=== PATIENT | male | born 1935 | race Caucasian/White ===

== ENCOUNTER 2019-12-04 09:51 | Emergency (ER) | payer MEDICARE, BC ==
[~2019-12-04] VITALS: Ht 177.8 cm; Wt 74.8 kg
[~2019-12-04 09:51] MED LIST: Colace100 MG PO; Norco 5-325 Ta1 EACH PO
[2019-12-04 12:27] LABS: BASOPHILS ABSOLUTE AUTO 0.02 K/mm3 (0.00-0.23); BASOPHILS PERCENT AUTO 0 % (0-2); EOSINOPHILS ABSOLUTE AUTO 0.02 K/mm3 (0.00-0.68); EOSINOPHILS PERCENT AUTO 0 % (0-6); Hematocrit 43.3 % (37.0-53.0); Hemoglobin 14.1 g/dL (13.5-17.5); IMMATURE GRAN ABSOLUTE AUTO 0.04 K/mm3 (0.00-0.10); IMMATURE GRAN PERCENT AUTO 0 % (0-1); LYMPHOCYTES ABSOLUTE AUTO 0.76 K/mm3 (0.84-5.20); LYMPHOCYTES PERCENT AUTO 7 % (21-46); MONOCYTES ABSOLUTE AUTO 0.37 K/mm3 (0.16-1.47); MONOCYTES PERCENT AUTO 4 % (4-13); Mean Corpuscular HGB 27.9 pg (26.0-34.0); Mean Corpuscular HGB Conc 32.6 g/dL (31.5-36.5); Mean Corpuscular Volume 86 fL (80-100); Mean Platelet Volume 9.3 fL (9.1-12.4); NEUTROPHILS ABSOLUTE AUTO 9.09 K/mm3 (1.96-9.15); NEUTROPHILS PERCENT AUTO 88 % (41-73); Platelet Count 397 K/mm3 (150-400); RDW Coefficient Variation 12.5 % (11.7-14.2); Red Blood Cell Count 5.05 M/mm3 (4.30-5.90)
[2019-12-04 13:05] LABS: Alanine Aminotransfer (ALT/SGP 23 U/L (12-78); Albumin, Blood 3.8 g/dL (3.4-5.0); Albumin/Globulin Ratio 1.1 (0.8-1.8); Alk Phos 67 U/L (50-136); Anion Gap 10 mmol/L (6-16); Aspartate Aminotrans (AST/SGOT 15 U/L (12-37); Bilirubin, Total 0.3 mg/dL (0.1-1.0); Blood Urea Nitrogen 15 mg/dL (8-24); CO2, Blood 24 mmol/L (21-32); Calcium, Blood 9.2 mg/dL (8.5-10.1); Chloride, Blood 105 mmol/L (98-108); Creatinine, Blood 0.72 mg/dL (0.60-1.20); Globulin, Blood 3.6 g/dL (2.2-4.0); Glomerular Filtration Rate >60 (60-); Glucose, Blood 232 mg/dL (70-99); Potassium, Blood 4.1 mmol/L (3.5-5.5); Sodium, Blood 139 mmol/L (136-145); Total Protein, Blood 7.4 g/dL (6.4-8.2)
[2019-12-04] MEDS ORDERED: Norco 5-325 Ta1 EACH PO (14:24)
[2019-12-04] MEDS ORDERED: Mobic15 MG PO (14:24)
== END 2019-12-04 15:00 | disposition home or self-care (01) ==
LOC: ER 09:51
PROVIDERS: Physician Assistant
DX: G89.29 Other chronic pain (principal); M19.011 Primary osteoarthritis, right shoulder; S46.001D Unspecified injury of muscle(s) and tendon(s) of the rotator cuff of right shoulder, subsequent encounter; E11.42 Type 2 diabetes mellitus with diabetic polyneuropathy
CPT/HCPCS: 36415; 80053; 82947; 85025; 96374; 99283-25; J1885

== ENCOUNTER → 2020-07-09 | Outpatient (CLI) | payer MEDICARE, BC ==
[~2020-07-09] MED LIST changes: +Mobic15 MG PO
[2020-07-09 13:31] LABS: BASOPHILS ABSOLUTE AUTO 0.03 K/mm3 (0.00-0.23); BASOPHILS PERCENT AUTO 0 % (0-2); EOSINOPHILS ABSOLUTE AUTO 0.16 K/mm3 (0.00-0.68); EOSINOPHILS PERCENT AUTO 2 % (0-6); Hematocrit 41.7 % (37.0-53.0); IMMATURE GRAN ABSOLUTE AUTO 0.04 K/mm3 (0.00-0.10); IMMATURE GRAN PERCENT AUTO 0 % (0-1); LYMPHOCYTES PERCENT AUTO 12 % (21-46); MONOCYTES ABSOLUTE AUTO 0.54 K/mm3 (0.16-1.47); MONOCYTES PERCENT AUTO 6 % (4-13); Mean Corpuscular HGB 27.2 pg (26.0-34.0); Mean Corpuscular HGB Conc 31.2 g/dL (31.5-36.5); Mean Corpuscular Volume 87 fL (80-100); Mean Platelet Volume 9.5 fL (9.1-12.4); NEUTROPHILS ABSOLUTE AUTO 7.79 K/mm3 (1.96-9.15); NEUTROPHILS PERCENT AUTO 80 % (41-73); Platelet Count 333 K/mm3 (150-400); RDW Coefficient Variation 13.5 % (11.7-14.2); RDW Standard Deviation 43.5 fL (35.1-46.3); Red Blood Cell Count 4.78 M/mm3 (4.30-5.90); White Blood Cell Count 9.76 K/mm3 (4.00-11.30)
[2020-07-09 13:59] LABS: Alanine Aminotransfer (ALT/SGP 19 U/L (12-78); Albumin, Blood 3.7 g/dL (3.4-5.0); Albumin/Globulin Ratio 1.2 (0.8-1.8); Alk Phos 64 U/L (50-136); Anion Gap 3 mmol/L (6-16); Aspartate Aminotrans (AST/SGOT 18 U/L (12-37); Bilirubin, Total 0.7 mg/dL (0.1-1.0); Blood Urea Nitrogen 14 mg/dL (8-24); Bun/Creatinine Ratio 17.4 (12.0-20.0); CO2, Blood 30 mmol/L (21-32); Chloride, Blood 108 mmol/L (98-108); Creatinine, Blood 0.81 mg/dL (0.60-1.20); Globulin, Blood 3.2 g/dL (2.2-4.0); Glomerular Filtration Rate >60 (60-); Glucose, Blood 114 mg/dL (70-99); Potassium, Blood 4.4 mmol/L (3.5-5.5); Sodium, Blood 141 mmol/L (136-145); Total Protein, Blood 6.9 g/dL (6.4-8.2)
== END ==
LOC: LAB 13:21 → LAB SHORT 13:21
PROVIDERS: Nurse Practitioner Family
DX: R11.2 Nausea with vomiting, unspecified (principal)
CPT/HCPCS: 80053; 83690; 85025

== ENCOUNTER 2022-03-11 17:15 | Emergency (ER) | payer MEDICARE, BC ==
[~2022-03-11] VITALS: Ht 177.8 cm; Wt 77.1 kg
[2022-03-11 19:16] LABS: BASOPHILS ABSOLUTE AUTO 0.01 K/mm3 (0.00-0.23); BASOPHILS PERCENT AUTO 0 % (0-2); EOSINOPHILS PERCENT AUTO 0 % (0-6); Hematocrit 37.6 % (37.0-53.0); Hemoglobin 12.1 g/dL (13.5-17.5); IMMATURE GRAN ABSOLUTE AUTO 0.04 K/mm3 (0.00-0.10); IMMATURE GRAN PERCENT AUTO 0 % (0-1); LYMPHOCYTES PERCENT AUTO 5 % (21-46); MONOCYTES ABSOLUTE AUTO 1.13 K/mm3 (0.16-1.47); MONOCYTES PERCENT AUTO 11 % (4-13); Mean Corpuscular HGB 26.9 pg (26.0-34.0); Mean Corpuscular HGB Conc 32.2 g/dL (31.5-36.5); Mean Corpuscular Volume 84 fL (80-100); Mean Platelet Volume 10.1 fL (9.1-12.4); NEUTROPHILS PERCENT AUTO 83 % (41-73); Platelet Count 227 K/mm3 (150-400); RDW Coefficient Variation 13.2 % (11.7-14.2); RDW Standard Deviation 40.9 fL (35.1-46.3); Red Blood Cell Count 4.49 M/mm3 (4.30-5.90); White Blood Cell Count 10.08 K/mm3 (4.00-11.30)
[2022-03-11] MEDS ORDERED: LATANOPROST2.5 M3 BOTHEYES (19:33)
[2022-03-11] MEDS ORDERED: CEPH500 PO (19:33)
[2022-03-11] MEDS ORDERED: GABA100 PO (19:34)
[2022-03-11] MEDS ORDERED: OMEP20ER PO (19:34)
[2022-03-11] MEDS ORDERED: PREGABALIN75 MG PO (19:35)
[2022-03-11] MEDS ORDERED: Celexa20 MG PO (19:35)
[2022-03-11] MEDS ORDERED: LISI20 PO (19:35)
[2022-03-11 19:40] LABS: Albumin, Blood 3.9 g/dL (3.4-5.0); Albumin/Globulin Ratio 1.2 (0.8-1.8); Bun/Creatinine Ratio 29.4 (12.0-20.0); Calcium, Blood 8.9 mg/dL (8.5-10.1); Creatinine, Blood 1.09 mg/dL (0.60-1.20); Globulin, Blood 3.3 g/dL (2.2-4.0); Potassium, Blood 4.1 mmol/L (3.5-5.5); Total Protein, Blood 7.2 g/dL (6.4-8.2)
== END 2022-03-11 21:38 | disposition home or self-care (01) ==
LOC: ER 17:15
PROVIDERS: Physician Assistant
DX: B08.4 Enteroviral vesicular stomatitis with exanthem (principal); R29.6 Repeated falls; Z87.891 Personal history of nicotine dependence
CPT/HCPCS: 36415; 70450; 71045; 72125; 80053; 83735; 84484; 85025; 93005; 93010

== ENCOUNTER 2022-10-07 07:12 | Inpatient (IN) | payer MEDICARE, BC ==
[~2022-10-07] VITALS: Ht 177.8 cm; Wt 77.0 kg
[~2022-10-07 07:12] MED LIST changes: +CEPH500 PO; +Celexa20 MG PO; +GABA100 PO; +LATANOPROST2.5 M3 BOTHEYES; +LISI20 PO; +OMEP20ER PO; +PREGABALIN75 MG PO
[2022-10-07 07:46] LABS: BASOPHILS ABSOLUTE AUTO 0.02 K/mm3 (0.00-0.23); BASOPHILS PERCENT AUTO 0 % (0-2); EOSINOPHILS ABSOLUTE AUTO 0.01 K/mm3 (0.00-0.68); EOSINOPHILS PERCENT AUTO 0 % (0-6); Hematocrit 38.8 % (37.0-53.0); Hemoglobin 12.2 g/dL (13.5-17.5); IMMATURE GRAN ABSOLUTE AUTO 0.05 K/mm3 (0.00-0.10); IMMATURE GRAN PERCENT AUTO 1 % (0-1); LYMPHOCYTES ABSOLUTE AUTO 0.58 K/mm3 (0.84-5.20); LYMPHOCYTES PERCENT AUTO 6 % (21-46); MONOCYTES PERCENT AUTO 7 % (4-13); Mean Corpuscular HGB 26.6 pg (26.0-34.0); Mean Corpuscular HGB Conc 31.4 g/dL (31.5-36.5); Mean Corpuscular Volume 85 fL (80-100); Mean Platelet Volume 9.4 fL (9.1-12.4); NEUTROPHILS ABSOLUTE AUTO 8.25 K/mm3 (1.96-9.15); NEUTROPHILS PERCENT AUTO 86 % (41-73); Platelet Count 238 K/mm3 (150-400); RDW Coefficient Variation 14.3 % (11.7-14.2); RDW Standard Deviation 44.1 fL (35.1-46.3); Red Blood Cell Count 4.58 M/mm3 (4.30-5.90); White Blood Cell Count 9.61 K/mm3 (4.00-11.30)
[2022-10-07] MEDS ORDERED: ASPIR 8181 M1 PO (07:52)
[2022-10-07] MEDS ORDERED: POTA10T PO (07:53)
[2022-10-07] MEDS ORDERED: TRAZ50 PO (07:54)
[2022-10-07] MEDS ORDERED: JARDIANCE10 MG PO (07:55)
[2022-10-07] MEDS ORDERED: DONE5 PO (07:55)
[2022-10-07] MEDS ORDERED: ALBU90OI INH (07:56)
[2022-10-07 08:06] LABS: Albumin, Blood 3.4 g/dL (3.4-5.0); Albumin/Globulin Ratio 0.9 (0.8-1.8); Bilirubin, Total 0.6 mg/dL (0.1-1.0); Calcium, Blood 8.5 mg/dL (8.5-10.1); Creatinine, Blood 1.38 mg/dL (0.60-1.20); Globulin, Blood 3.6 g/dL (2.2-4.0); Magnesium, Blood 2.1 mg/dL (1.6-2.4); Potassium, Blood 4.5 mmol/L (3.5-5.5)
[2022-10-07 08:30] LABS: Influenza A, PCR NEGATIVE (NEGATIVE); Influenza B, PCR NEGATIVE (NEGATIVE); Resp Syncytial Virus, PCR NEGATIVE (NEGATIVE); SARS-Cov-2 (COVID-19) PCR, MMC NEGATIVE (NEGATIVE)
[2022-10-07] MEDS ORDERED: MULVITA (12:53)
[2022-10-07] MEDS ORDERED: FURO20 PO (12:54)
--- NOTE | 2022-10-07 13:14 | NUR ---
Pt arrived to [facility] via [facility] from ED, report obtained, caregiver in attendence, pt is a/ox3, but early demential and forgetful, pleasant and cooperative with care, follows commands well, denies pain, lungs are course rhonchi with wheezing t/o, currently on 2 liters 02 via n/c, resp even and unlabored, has a wet harsh cough swallowing phlem, hrr, distant, lung sounds overpower, no edema noted, ppp +1, cap refill <3sec, vs stable, afebrile, iv sites are to rfa and lac, sites and clear and patent, btx4, abd flat soft nontender, voids without diff, is incont of urine and stool, maew, ambulates with a walker at baseline, but is too weak at this time, taz, oriented to call light and room layout, call system in reach.
--- NOTE | 2022-10-07 18:21 | NUR ---
pt caregiver brought him dinner, continues to have a wet cough, doing ok, call light in reach.
[2022-10-08 05:10] LABS: Base Excess Venous -0.5 mmol/L; Bicarbonate Venous 23.7 mmol/L (24.0-30.0); PCO2 Venous 46.5 mmHg (38-42); pH Blood Venous 7.34 (7.34-7.37)
[2022-10-08 05:28] LABS: BASOPHILS ABSOLUTE AUTO 0.02 K/mm3 (0.00-0.23); BASOPHILS PERCENT AUTO 0 % (0-2); EOSINOPHILS ABSOLUTE AUTO 0.01 K/mm3 (0.00-0.68); EOSINOPHILS PERCENT AUTO 0 % (0-6); Hematocrit 34.4 % (37.0-53.0); Hemoglobin 10.9 g/dL (13.5-17.5); IMMATURE GRAN ABSOLUTE AUTO 0.03 K/mm3 (0.00-0.10); IMMATURE GRAN PERCENT AUTO 0 % (0-1); LYMPHOCYTES ABSOLUTE AUTO 0.62 K/mm3 (0.84-5.20); LYMPHOCYTES PERCENT AUTO 9 % (21-46); MONOCYTES ABSOLUTE AUTO 0.71 K/mm3 (0.16-1.47); MONOCYTES PERCENT AUTO 10 % (4-13); Mean Corpuscular HGB 26.7 pg (26.0-34.0); Mean Corpuscular HGB Conc 31.7 g/dL (31.5-36.5); Mean Corpuscular Volume 84 fL (80-100); Mean Platelet Volume 9.7 fL (9.1-12.4); NEUTROPHILS ABSOLUTE AUTO 5.77 K/mm3 (1.96-9.15); NEUTROPHILS PERCENT AUTO 81 % (41-73); Platelet Count 220 K/mm3 (150-400); RDW Coefficient Variation 14.6 % (11.7-14.2); RDW Standard Deviation 45.2 fL (35.1-46.3); Red Blood Cell Count 4.08 M/mm3 (4.30-5.90); White Blood Cell Count 7.16 K/mm3 (4.00-11.30)
[2022-10-08 05:50] LABS: Albumin, Blood 3.1 g/dL (3.4-5.0); Albumin/Globulin Ratio 0.9 (0.8-1.8); Bilirubin, Total 0.5 mg/dL (0.1-1.0); Bun/Creatinine Ratio 23.9 (12.0-20.0); Calcium, Blood 8.8 mg/dL (8.5-10.1); Creatinine, Blood 1.13 mg/dL (0.60-1.20); Globulin, Blood 3.6 g/dL (2.2-4.0); Potassium, Blood 4.6 mmol/L (3.5-5.5); Total Protein, Blood 6.7 g/dL (6.4-8.2)
--- NOTE | 2022-10-08 09:31 | NUR ---
MALACHI MIST PT TOOK A DRINK OF SEIRRA MIST WITH A STRAW. HE WAS SITTING UP. VOICE WET, COULD HEAR THE RHIONCHI AUDIBLE. HIS FACE TURNED RED AND STARTED COUGHING. REMOVED THIN LIQUIDS. NO SPEECH THERAPY TODAY. CONTINUE POC.
--- NOTE | 2022-10-08 15:05 | NUR ---
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 SHE ALSO RELATED THAT, AT HOME, HE WOULD START COUGHING WHEN HE LAYED DOWN AND HIS FACE WOULD TURN COLOR. WHEN HE SAT UP HE WOULD REPEATEDLY SNEEZE. CAREGIVER RELATED THAT HE HAS BEEN ON ANTIBIOTICS FOR PNEUMONIA OFF AND ON FOR MONTHS. JUST IT SEEMS TO GET BETTER HE WOULD START FEELING POOR AGAIN. CONTINUE POC.
--- NOTE | 2022-10-08 18:22 | NUR ---
EVENING NOTE PT HAS CONTINUED TO DEVELOP A WET VOICE WHEN HE SWALLOWS SALIVA. VOICE BECOMES COURSE AND WET. CLEARS WITH A COUGH. UNABLE TO LAY HIM DOWN BELOW 15 DEGREES TO CLEAN HIM D/T HIS FACE TURNING PURPLE/RED AND A WET VOICE AND COUGH DEVELOPING IMMEDIATELY. SAT ON RA HAVE BEEN STABLE ALL DAY. HE HAS USED THE URINAL A COUPLE TIMES MOSTLY LEAKING INTO HIS ATTENDS. CAREGIVER AT BEDSIDE WITH HIS LITTLE DOG. THEY HAVE OPENED PRESENTS TODAY. PT HAS PERIODS OF TEARFULNESS AND ANXIETY. HE HAD A TBI WHENHE WAS A TEENAGER. CONTINUE POC.
--- NOTE | 2022-10-09 03:31 | NUR ---
A/OX2-3; SELF AND PLACE THIS SHIFT. FORGETFUL /IMPULSIVE AT TIMES. CRAIG. 2L O2 VIA NC. DE-SATS WHEN LAID FLAT TO LOW 80s. DENIES PAIN. TOOK PILLS WHOLE WITH NECTAR THICK LIQUID WITH NO ISSUES. INC AT TIMES AND SPILLS URINAL; CONDOM CATH ATTEMPTED PRIOR DATABASE DEVELOPMENT PROJECT MANAGER - PATIENT REMOVED. 2X MAX ASSIST PIVOT TO BSC WAS VERY DIFFICULT; VERY LIMITED WEIGHTBEARING ABILITY AT THIS TIME. THIS RN RECCOMENDS LIFT TRANSFER CURRENTLY. SLEEP PROMOTED. BED ALARM SET. CALL LIGHT IN REACH; ENCOURAGED TO MAKE NEEDS KNOWN.
--- NOTE | 2022-10-09 16:33 | NUR ---
SHIFT SUMMARY: PATIENT ALERT AND ORIENTED TO SELF, SORROUNDINGS AND TO HIS PRIVATE CAREGIVER. ST DID SPEECH SWALLOW EVAL THIS AM. RECOMMENDED TO PLACE PATIENT ON PUREED DIET c THICKENED FLUIDS AND MEDS WHOLE c APPLE SAUCE. PATIENT NEEDS TO BE FEED ASSIST. PATIENT HAS NOT BEEN EATING ADEQUATELY. PATIENT HAD COUPLE BITES FOR BREAKFAST AND COUPLE BITES FOR LUNCH. ORAL CARE DONE AND SUCTIONS PRN. PATIENT ON O2 2L VIA NC c SPO2 ABOVE 90%. LUNGS HAS INS/EXP WHEEZES T/O TO AUSCULTATIONS. DENIES SOB. DENIES CP/CHEST DISCOMFORT. PATIENT HAS BEEN CONTINENT AND USES URINAL c ASSISTANCE. PRIVATE CAREGIVER AT BEDSIDE T/O THE DAY AND HAS BEEN HELPING c PATIENT USES THE URINAL . PATIENT HAS BEEN RESTING IN BED T/O SHIFT. REFUSED TO SIT UP IN THE CHAIR THIS SHIFT. RECEIVED SCHEDULED IV ABX THIS SHIFT. IV TO L AC INFUSING NS AT 75 MLS/HR. THIS RN COMMUNICATE c DR. SHERWOOD REGARDING PATIENT BS DURING PHYSICIAN ROUNDING THIS AM. PER DR. SHERWOOD HE WILL TAKE CARE OF IT. VITAL SIGNS REVIEWED. Q2 TURN. BED ALARM ON FOR SAFETY AND CALL LIGHT IN REACH.
--- NOTE | 2022-10-10 06:02 | NUR ---
A/OX2-3; SELF AND PLACE THIS SHIFT. FORGETFUL /IMPULSIVE AT TIMES. ANIAK. 2L O2 VIA NC. DE-SATS WHEN LAID FLAT TO LOW 80s. CONGESTED COUGH; PRN GUAIFENISIN SYRUP GIVEN. C/O GENERALIZED DISCOMFORT; PRN TYLENOL GIVEN C/O FEELING NAUSEATED; PRN PHENERGAN (EFFECTIVE) GIVEN 2X THIS SHIFT (CHANGED TO Q4 PER ORDERS). TOOK PILLS WHOLE WITH APPLESAUCE WITH NO ISSUES. INC AT TIMES AND SPILLS URINAL; OFFERED URINAL OFTEN, BEDPAN 1X. 2X MAX ASSIST PIVOT TO BSC WAS VERY DIFFICULT; VERY LIMITED WEIGHTBEARING ABILITY AT THIS TIME. THIS RN RECCOMENDS LIFT TRANSFER CURRENTLY. SLEEP PROMOTED. BED ALARM SET. CALL LIGHT IN REACH; ENCOURAGED TO MAKE NEEDS KNOWN.
[2022-10-10 06:31] LABS: Hematocrit 32.8 % (37.0-53.0); Hemoglobin 10.3 g/dL (13.5-17.5); Mean Corpuscular HGB 26.3 pg (26.0-34.0); Mean Corpuscular HGB Conc 31.4 g/dL (31.5-36.5); Mean Corpuscular Volume 84 fL (80-100); Mean Platelet Volume 9.4 fL (9.1-12.4); Platelet Count 220 K/mm3 (150-400); RDW Coefficient Variation 14.4 % (11.7-14.2); RDW Standard Deviation 43.8 fL (35.1-46.3); Red Blood Cell Count 3.92 M/mm3 (4.30-5.90); White Blood Cell Count 4.08 K/mm3 (4.00-11.30)
[2022-10-10 06:59] LABS: Bun/Creatinine Ratio 37.3 (12.0-20.0); Calcium, Blood 8.4 mg/dL (8.5-10.1); Creatinine, Blood 0.83 mg/dL (0.60-1.20); Potassium, Blood 4.2 mmol/L (3.5-5.5)
[2022-10-10 07:07] LABS: BAND PERCENT MAN 1 % (0-8); BASOPHILS PERCENT MAN 0 % (0-2); EOSINOPHILS PERCENT MAN 0 % (0-6); LYMPHOCYTES PERCENT MAN 10 % (21-46); MONOCYTES ABSOLUTE MAN 0.16 K/mm3 (0.16-1.47); MONOCYTES PERCENT MAN 4 % (4-13); SEG NEUTROPHILS PERCENT MAN 85 % (41-73); TOTAL CELLS COUNTED 100
--- NOTE | 2022-10-10 17:26 | NUR ---
SHIFT SUMMARY: PATIENT A&OX3. PLEASANT AND COOPERATIVE c CARE. USES CALL LIGHT APPROPRIATELY. RECEIVED BEDBATH AND LINEN CHANGED THIS AM. PATIENT IS CONT/INCONT VOID THIS SHIFT. NO BM THIS SHIFT. PATIENT WAS ABLE TO PARTICIAPTE c PT/OT MOBILITY THIS AFTERNOON. TOLERATE SITTING UP IN THE CHAIR FOR ABOUT 2 HOURS. PT/OT RECOMMENDED 2 MAX ASSIST FOR TRANSFER. PATIENT REPORTS OF BEING NAUSEOUS BUT NO VOMITING. MEDICATED X1 c IV PHENERGAN. PATIENT REPORTS OF HAVING ADEQUATE RELIEF. ST DID REEVALUATE PT THIS AM. ST RECOMMENDED THIN LIQUID BY SPOON FEED. PATIENT O2 WAS TITRATED TO 1L VIA NC c SPO2 93-95% T/O SHIFT. RECEIVED SCHEDULED MEDS THIS SHIFT. BS CHECK ACHS PER ORDER. VITAL SIGNS REVIEWED. BED ALARM ON FOR SAFETY. CALL LIGHT IN REACH.
--- NOTE | 2022-10-11 03:09 | NUR ---
A/OX2-3; SELF AND PLACE THIS SHIFT. FORGETFUL /IMPULSIVE AT TIMES. SOBOBA. 1L O2 VIA NC. CONGESTED COUGH; REFUSING PRN GUAIFENISIN SYRUP C/O GENERALIZED DISCOMFORT; PRN TYLENOL GIVEN DENIES FEELING NAUSEATED THIS SHIFT. TOOK PILLS WHOLE WITH APPLESAUCE WITH NO ISSUES. INC AT TIMES AND SPILLS URINAL; OFFERED OFTEN. 2X MAX ASSIST PIVOT TO BSC WAS VERY DIFFICULT; VERY LIMITED WEIGHTBEARING ABILITY AT THIS TIME. NOT OOB THIS SHIFT; Q2 REPOSITIONING - PATIENT VERY COOPERATIVE WITH CARE. SLEEP PROMOTED. BED ALARM SET. CALL LIGHT IN REACH; ENCOURAGED TO MAKE NEEDS KNOWN.
--- NOTE | 2022-10-11 12:14 | NUR ---
NOTE DURING OCCUPATIONAL THERAPY, WHEN PT DABGKLED ON THE SIDE OF THE BED, HE DESAT TO 83% ON RA. PLACED ON 2L N/C. OXYGEN SATURATIONS RECOVERED TO 91%. DR PAT REQUESTED TO [facility]AN [facility]. CALLED DR PAT AND RELATED PT ACTIVITY SATURATIONS. NO ORDER TO DISCHARGE. CONTINUE PLAN OF CARE.
--- NOTE | 2022-10-11 17:09 | NUR ---
EVENING NOTE PT ALERT, IS NOT HAPPY WITH THICKENED LIQUIDS. HE REFUSED TO TRY THICKENED JUICE, SODA OR TEA. ATTEMPTED TO WEAN TO RA. AT REST 90% WITH HR 60'S. DANGLING ON THE SIDE OF THE BED 83% WITH HR 90. APPLIED 3L O2 TO SIT IN THE CHAIR AT BEDSIDE. SAT 92% ON 3L SITTING UP. TRANSFERED TO BED WITH PHYSICLA THERAPY. HE HAS AGREED TO A HOSPITAL BED SO HE HAD MAINTAIN HIS HOB ABOVE 30 DEGREES AT HOME. CONTINUE POC.
--- NOTE | 2022-10-12 05:38 | NUR ---
CHIN STRAP SEWER SUMMARY: A&Ox2-3. HIS BIGGEST COMPLAINT IS NOT BEING ABLE TO HAVE ICE OR NON-THICKENED LIQUIDS AND WILL ASK DIFFERENT STAFF MEMBERS TO GET IT FOR HIM. NONAMBULATORY BUT IS COMPLIANT WITH REPOSITIONING AND ALL OTHER CARE. BPs RUNNING HIGH, C/W NORMAL TREND THIS HOSPITALIZATION. LUNGS COARSE T/O. O2 3L/min VIA NC AND DESATS IF SUPINE OR WITH EXERTION. AM LABS DRAWN. WILL REPORT TO ONCOMING RN.
[2022-10-12 06:25] LABS: BASOPHILS ABSOLUTE AUTO 0.01 K/mm3 (0.00-0.23); BASOPHILS PERCENT AUTO 0 % (0-2); EOSINOPHILS PERCENT AUTO 0 % (0-6); Hematocrit 34.5 % (37.0-53.0); Hemoglobin 11.2 g/dL (13.5-17.5); IMMATURE GRAN ABSOLUTE AUTO 0.05 K/mm3 (0.00-0.10); IMMATURE GRAN PERCENT AUTO 1 % (0-1); LYMPHOCYTES ABSOLUTE AUTO 0.78 K/mm3 (0.84-5.20); LYMPHOCYTES PERCENT AUTO 12 % (21-46); MONOCYTES ABSOLUTE AUTO 0.47 K/mm3 (0.16-1.47); MONOCYTES PERCENT AUTO 8 % (4-13); Mean Corpuscular HGB 26.6 pg (26.0-34.0); Mean Corpuscular HGB Conc 32.5 g/dL (31.5-36.5); Mean Corpuscular Volume 82 fL (80-100); Mean Platelet Volume 9.5 fL (9.1-12.4); NEUTROPHILS ABSOLUTE AUTO 4.97 K/mm3 (1.96-9.15); NEUTROPHILS PERCENT AUTO 79 % (41-73); Platelet Count 263 K/mm3 (150-400); RDW Coefficient Variation 14.1 % (11.7-14.2); RDW Standard Deviation 41.8 fL (35.1-46.3); Red Blood Cell Count 4.21 M/mm3 (4.30-5.90); White Blood Cell Count 6.28 K/mm3 (4.00-11.30)
[2022-10-12 06:48] LABS: Albumin, Blood 3.1 g/dL (3.4-5.0); Anion Gap 5 mmol/L (6-16); Blood Urea Nitrogen 28 mg/dL (8-24); Bun/Creatinine Ratio 39.1 (12.0-20.0); CO2, Blood 26 mmol/L (21-32); Calcium, Blood 8.8 mg/dL (8.5-10.1); Chloride, Blood 112 mmol/L (98-108); Creatinine, Blood 0.72 mg/dL (0.60-1.20); Glomerular Filtration Rate 90 (60-); Glucose, Blood 199 mg/dL (70-99); Phosphorus, Blood 3.1 mg/dL (2.5-4.9); Potassium, Blood 3.9 mmol/L (3.5-5.5); Sodium, Blood 143 mmol/L (136-145)
--- NOTE | 2022-10-12 16:37 | NUR ---
PT AOX2-3 AND COOPERATIVE OF CARE. PT HAS HAD HIS CAREGIVERS IN ROOM MOST TO THE DAY. PT WAS VERBALIZING HOW UNHAPPY HE WAS ON THICK LIQUIDS AND VERBALIZING HE JUST WANTED TO GO HOME. PALLIATIVE CARE HAS HAD A MEETING WITH FAMILY MEMBER AND CAREGIVERS. WILL CONTINUE TO MONITOR CALL LIGHT IS WITHIN REACH.
--- NOTE | 2022-10-12 16:38 | NUR ---
Spoke with Dr Cm and discussed case. Brief discussion regarding hospice was brought up when she examined Pt. Pt and family may benefit from further discussion. 87 years old male admitted to the hospital with Pneumonia. Pt's medical history and comorbidities include: DM, CHF, HTN, Neuropathy, Recurrent Pneumonia, Dementia, and CKD3. Pt resting in bed and is A&OX2/3. Pt currently on 4 L O2 via NC. Pt's sister Pili, caregivers Joaquin and Latisha are at bedside. Engaged in therapeutic discussion regarding goals of care. Gentle education on disease process including trajectory. Listened as Pt reports wanting to go home and prefers to avoid hospitalization in the future. Discussed hospice as an option and educated on hospice philosophy. Pt, family, and caregivers are in agreement for hospice services. Pt and family agreeable for [facility]. Offered therapeutic listening and answered questions. Spoke with Primary RN REYNALDO Kirby, and discussed case. Pt requires assistance with transfers, ambulation, bathing, dressing, and is continent/incontinent. Pt has poor appetite. Spoke with Flower at [facility]. Flower reports hospice can admit possibly Sunday or Sunday. PPS 40% ADLs 5/6 Palliative Care will remain available.
--- NOTE | 2022-10-13 06:18 | NUR ---
SUPPORT MERCHANDISER SUMMARY: A&Ox3-4 WITH EPISODIC CONFUSION. PLEASANT AND COOPERATIVE WITH CARE. DOES NOT ALWAYS CALL FOR CARE BUT IS ABLE TO COMMUNICATE NEEDS ONCE STAFF ARE IN HIS ROOM. CONTINUES TO REQUEST SIPS OF WATER IN SPITE OF BEING ON A NECTAR THICKENED DIET AND BECOMES UPSET WHEN OFFERED THICKENED FLUIDS. NO ACUTE CHANGES T/O SHIFT. ANTICIPATE DC HOME TODAY ON HOSPICE CARE.
--- NOTE | 2022-10-13 11:59 | NUR ---
Spoke with RN Shaunna Yip and discussed case. Pt adamant about going home today. Spoke with Dr Cm and discussed case. Dr Cm signs hospice orders and this RN delivered orders to MATTHEW Maza to fax to [facility]. Spoke with Pt and caregiver Joaquin. Pt remains adamant about going home. Gentle discussion regarding risks involved with going home before hospice can be set up. Pt still reports wanting to go home. Plan for Dr Cm to visit with Pt.
--- NOTE | 2022-10-13 16:48 | NUR ---
DAYSHIFT SUMMARY Patient doing well today, evalulated by LATH TIER. MD assessed patient, and discussed plan of care with patient & private caregiver. Plan is to transition to comfort care & discharge home on sunday. Sunday Hospice will f/u with patient at home. Patient agreeable to plan. Patient resting comfortably in bed. Will continue plan of care.
--- NOTE | 2022-10-14 04:29 | NUR ---
SHIFT SUMMARY 87 YR M ADMITTED ON 10/07/22 FOR ASPIRATION PNEUMONIA. DNR. COMFORT CARE. NO ACUTE CHANGES THIS SHIFT. PT HAS AN "ADVANCE DIET TOLERATED" ORDER AND HAS ASKED SEVERAL TIMES FOR ICE WATER. HE HAS DONE VERY WELL DRINKING IT THROUGH A STRAW WITH NO COUGHING OR CHOLING. TAKES MEDS WHOLE IN APPLESAUCE WITH NO ISSUES. HE IS A&O AND IS PLEASANT AND COOPERATIVE. HE CALLS APPROPRIATELY WHEN HE NEEDS TO USE THE URINAL.
--- NOTE | 2022-10-14 17:52 | NUR ---
Pt up in chair some mild dyspnea. Refusing medications, offered fluids or food wanted orange popsicle, which the patient enjoyed. reviewed with pt that taking a little tylenol might make him more comfortable he will consider a dose
--- NOTE | 2022-10-14 18:12 | NUR ---
END OF SHIFT SUMMARY: PATIENT DENIED PAIN OR DISCOMFORT THROUGHOUT THE SHIFT. PATIENT HAD COARSE LUNG SOUNDS THROUGHOUT THE SHIFT. PATIENT IS ABLE TO COUGH ON COMMAND. ENCOURAGED PATIENT TO COUGH THROUGHOUT THE SHIFT. PATIENT HAS WET BREATH SOUNDS AT TIME. CONTINUES TO BE STABLE ON 3L VIA NC. PATIENT UP TO THE CHAIR FOR LUNCH. ONE OF THE PATIENT'S CAREGIVERS WAS AT THE BEDSIDE FOR MOST OF THE DAY. PATIENT REPORTS THAT HE IS VERY READY TO GO HOME.
--- NOTE | 2022-10-15 04:11 | NUR ---
SHIFTY SUMMARY 87 YR M ADMITTED ON 10/07/22 FOR ASPIRATION PNEUMONIA. DNR. COMFORT CARE. NO ACUTE CHANGES THIS SHIFT. PT GIVEN MEDS PER EMAR FOR HEADACHE. NO OTHER C/O PAIN OR DISCOMFORT. TOOK MEDS WHOLE WITH APPLESAUCE. REQUESTED MEDS EARLY SO HE COULD GO TO SLEEP. COUGH IS STILL WET SOUNDING BUT HE IS DOING A GREAT JOB OF COUGHING. HE IS VERY PLEASANT AND COOPERATIVE WITH CARE.
[2022-10-15] MEDS ORDERED: Acetaminophen325 M1 PO (10:36)
[2022-10-15] MEDS ORDERED: Q-Tussin100 MG/5 M PO (10:36)
[2022-10-15] MEDS ORDERED: IPRAT-ALBUT 0.5-3 ML INH (10:36)
[2022-10-15] MEDS ORDERED: Ativan1 MG PO (10:37)
[2022-10-15] MEDS ORDERED: HYOS.125 PO (10:38)
[2022-10-15] MEDS ORDERED: MORP20L PO (10:39)
[2022-10-15] MEDS ORDERED: SENNA LAXATIVE8.6 MG PO (10:39)
[2022-10-15] MEDS ORDERED: DULCOLAX400 MG/5 M PO (10:40)
[2022-10-15] MEDS ORDERED: BISA10S PR (10:41)
--- NOTE | 2022-10-15 11:26 | NUR ---
PATIENT DISCHARGED HOME WITH CG, HOSPICE TO FOLLOW. CG VERBALIZED UNDERSTANDING OF D/C INSTRUCTIONS. PT DRESSED IN OWN CLOTHING. OFF UNIT VIA W/C AT 1120. NO PERSONAL BELONGINGS LEFT BEHIND IN ROOM.
== END 2022-10-15 11:22 | disposition hospice, home (50) | DRG 177 ==
LOC: ER 07:12 → MEDS 10:31
PROVIDERS: Internal Medicine; Student in an Organized Health Care Education/Training Program; ADMIT Internal Medicine
DX: J69.0 Pneumonitis due to inhalation of food and vomit (principal); J96.01 Acute respiratory failure with hypoxia; N17.9 Acute kidney failure, unspecified; E87.29 Other acidosis; I50.32 Chronic diastolic (congestive) heart failure; Z66 Do not resuscitate; Z51.5 Encounter for palliative care; Z20.822 Contact with and (suspected) exposure to COVID-19; E11.40 Type 2 diabetes mellitus with diabetic neuropathy, unspecified; M19.90 Unspecified osteoarthritis, unspecified site; R13.12 Dysphagia, oropharyngeal phase; K21.9 Gastro-esophageal reflux disease without esophagitis; Z96.643 Presence of artificial hip joint, bilateral; H40.9 Unspecified glaucoma; F03.90 Unspecified dementia, unspecified severity, without behavioral disturbance, psychotic disturbance, mood disturbance, and anxiety; N18.30 Chronic kidney disease, stage 3 unspecified; E11.22 Type 2 diabetes mellitus with diabetic chronic kidney disease; D63.1 Anemia in chronic kidney disease; E11.65 Type 2 diabetes mellitus with hyperglycemia; Z95.0 Presence of cardiac pacemaker; Z88.0 Allergy status to penicillin; Z79.2 Long term (current) use of antibiotics; Z79.899 Other long term (current) drug therapy
CPT/HCPCS: 0241U; 36415; 71045; 74230; 80048; 80053; 80069; 82803; 82947; 83036; 83519; 83605; 83735; 84145; 85025; 87040; 92526; 92610; 92611; 93005; 93010; 93306; 94640; 94664; 94760; 94762; 96361; 96365; 96366; 96375; 97116; 97162; 97166; 97530; 99285-25; A9270; J0456; J0690; J0696; J1650; J1940; J2550; J7030; J7050; J7060

== ENCOUNTER 2023-01-27 17:21 | Emergency (ER) | payer MEDICARE, BC ==
[~2023-01-27] VITALS: Ht 180.3 cm; Wt 83.9 kg
[~2023-01-27 17:21] MED LIST changes: +ALBU90OI INH; +ASPIR 8181 M1 PO; +Acetaminophen325 M1 PO; +Ativan1 MG PO; +BISA10S PR; +DONE5 PO; +DULCOLAX400 MG/5 M PO; +FURO20 PO; +HYOS.125 PO; +IPRAT-ALBUT 0.5-3 ML INH; +JARDIANCE10 MG PO; +MORP20L PO; +MULVITA; +POTA10T PO; +Q-Tussin100 MG/5 M PO; +SENNA LAXATIVE8.6 MG PO; +TRAZ50 PO
[2023-01-27] MEDS ORDERED: ASPIR 8181 M1 PO (17:31)
[2023-01-27 17:46] LABS: BASOPHILS ABSOLUTE AUTO 0.02 K/mm3 (0.00-0.23); BASOPHILS PERCENT AUTO 0 % (0-2); EOSINOPHILS ABSOLUTE AUTO 0.07 K/mm3 (0.00-0.68); EOSINOPHILS PERCENT AUTO 1 % (0-6); Hematocrit 38.1 % (37.0-53.0); Hemoglobin 12.1 g/dL (13.5-17.5); IMMATURE GRAN ABSOLUTE AUTO 0.04 K/mm3 (0.00-0.10); IMMATURE GRAN PERCENT AUTO 0 % (0-1); LYMPHOCYTES ABSOLUTE AUTO 1.01 K/mm3 (0.84-5.20); LYMPHOCYTES PERCENT AUTO 9 % (21-46); MONOCYTES ABSOLUTE AUTO 0.98 K/mm3 (0.16-1.47); MONOCYTES PERCENT AUTO 9 % (4-13); Mean Corpuscular HGB 25.7 pg (26.0-34.0); Mean Corpuscular HGB Conc 31.8 g/dL (31.5-36.5); Mean Corpuscular Volume 81 fL (80-100); Mean Platelet Volume 10.2 fL (9.1-12.4); NEUTROPHILS ABSOLUTE AUTO 9.14 K/mm3 (1.96-9.15); NEUTROPHILS PERCENT AUTO 81 % (41-73); Platelet Count 280 K/mm3 (150-400); RDW Coefficient Variation 15.8 % (11.7-14.2); RDW Standard Deviation 46.6 fL (35.1-46.3); Red Blood Cell Count 4.71 M/mm3 (4.30-5.90); White Blood Cell Count 11.26 K/mm3 (4.00-11.30)
[2023-01-27 18:04] LABS: Albumin, Blood 3.5 g/dL (3.4-5.0); Albumin/Globulin Ratio 1.1 (0.8-1.8); Bilirubin, Total 0.3 mg/dL (0.1-1.0); Bun/Creatinine Ratio 29.5 (12.0-20.0); Calcium, Blood 8.5 mg/dL (8.5-10.1); Creatinine, Blood 1.22 mg/dL (0.60-1.20); Globulin, Blood 3.3 g/dL (2.2-4.0); Potassium, Blood 5.1 mmol/L (3.5-5.5); Total Protein, Blood 6.8 g/dL (6.4-8.2)
[2023-01-27 18:10] LABS: Source, Urine Clean Catch
[2023-01-27 18:12] LABS: Appearance, Urine Clear (Clear); Bilirubin, Urine Neg (Neg); Blood, Urine Neg (Neg); Color, Urine Yellow (P-Yellow); Glucose Qualitative, Urine 4+ (Neg); Ketones, Urine Neg (Neg); Leukocyte Esterase, Urine Neg (Neg); Nitrite, Urine Neg (Neg); Protein, Urine Neg (Neg); Urobilinogen, Urine NORM (Normal)
[2023-01-27 21:00] VITALS: BP 124/55
== END 2023-01-27 21:05 | disposition home or self-care (01) ==
LOC: ER 17:21
PROVIDERS: Student in an Organized Health Care Education/Training Program
DX: R53.1 Weakness (principal); R25.1 Tremor, unspecified; R41.0 Disorientation, unspecified; E86.0 Dehydration; E11.42 Type 2 diabetes mellitus with diabetic polyneuropathy; I50.9 Heart failure, unspecified; Z87.891 Personal history of nicotine dependence; Z88.0 Allergy status to penicillin; Z79.899 Other long term (current) drug therapy; Z79.82 Long term (current) use of aspirin
CPT/HCPCS: 70450; 71045; 80053; 81003; 85025; 85730; 93005; 93010; 99285-25; J7030

== ENCOUNTER 2023-08-03 14:07 | Emergency (ER) | payer MEDICARE, BC ==
[~2023-08-03] VITALS: Ht 177.8 cm; Wt 68.0 kg
[2023-08-03 15:50] LABS: BASOPHILS ABSOLUTE AUTO 0.03 K/mm3 (0.00-0.23); BASOPHILS PERCENT AUTO 0 % (0-2); EOSINOPHILS ABSOLUTE AUTO 0.13 K/mm3 (0.00-0.68); EOSINOPHILS PERCENT AUTO 2 % (0-6); Hematocrit 38.3 % (37.0-53.0); IMMATURE GRAN ABSOLUTE AUTO 0.02 K/mm3 (0.00-0.10); IMMATURE GRAN PERCENT AUTO 0 % (0-1); LYMPHOCYTES PERCENT AUTO 14 % (21-46); MONOCYTES PERCENT AUTO 13 % (4-13); Mean Corpuscular HGB Conc 31.3 g/dL (31.5-36.5); Mean Corpuscular Volume 83 fL (80-100); Mean Platelet Volume 9.9 fL (9.1-12.4); NEUTROPHILS ABSOLUTE AUTO 5.92 K/mm3 (1.96-9.15); NEUTROPHILS PERCENT AUTO 71 % (41-73); Platelet Count 258 K/mm3 (150-400); RDW Coefficient Variation 15.4 % (11.7-14.2); RDW Standard Deviation 47.2 fL (35.1-46.3); Red Blood Cell Count 4.61 M/mm3 (4.30-5.90)
[2023-08-03 15:57] LABS: Albumin, Blood 3.4 g/dL (3.4-5.0); Bilirubin, Total 0.3 mg/dL (0.1-1.0); Bun/Creatinine Ratio 19.1 (12.0-20.0); Calcium, Blood 8.6 mg/dL (8.5-10.1); Creatinine, Blood 1.15 mg/dL (0.60-1.20); Globulin, Blood 3.4 g/dL (2.2-4.0); Potassium, Blood 4.1 mmol/L (3.5-5.5); Total Protein, Blood 6.8 g/dL (6.4-8.2)
[2023-08-03 16:08] LABS: Influenza A, PCR NEGATIVE (NEGATIVE); Influenza B, PCR NEGATIVE (NEGATIVE); Resp Syncytial Virus, PCR NEGATIVE (NEGATIVE); SARS-Cov-2 (COVID-19) PCR, MMC NEGATIVE (NEGATIVE)
[2023-08-03 16:45] VITALS: BP 119/58
[2023-08-03] MEDS ORDERED: AZIT250 PO (17:01)
== END 2023-08-03 17:15 | disposition home or self-care (01) ==
LOC: ER 14:07
PROVIDERS: Emergency Medicine
DX: R05.9 Cough, unspecified (principal); F03.90 Unspecified dementia, unspecified severity, without behavioral disturbance, psychotic disturbance, mood disturbance, and anxiety; I50.9 Heart failure, unspecified; E11.42 Type 2 diabetes mellitus with diabetic polyneuropathy; Z88.0 Allergy status to penicillin; Z20.822 Contact with and (suspected) exposure to COVID-19; Z79.82 Long term (current) use of aspirin; Z79.899 Other long term (current) drug therapy; Z87.891 Personal history of nicotine dependence
CPT/HCPCS: 0241U; 71045; 80053; 83880; 85025; 93005; 93010; 94640; 94664; 99285-25; A9270